=== PATIENT | male | born 1950 | race Caucasian/White ===

== ENCOUNTER → 2018-06-09 12:50 | Outpatient (CLI) | payer MEDICARE, SELFPAY ==
--- NOTE | 2018-06-09 13:01 | MRI_ITS ---
STUDY: MRI ABDOMEN WITHOUT CONTRAST-MRCP REASON FOR EXAM: Male, 67 years old. Elevated liver enzymes with history of prior cholecystectomy. TECHNIQUE: Standardized fat and water weighted pulse sequences were obtained in all 3 orthogonal planes. MRCP protocol with three-dimensional reconstruction images provided. COMPARISON: ERCP from 06/25/2016 FINDINGS: Base of the chest is unremarkable. No hepatic masses are demonstrated. There is non-visualization of the gallbladder, which may be secondary to either contraction or a prior cholecystectomy. Normal spleen. Normal pancreas. Anterior and superior to the pancreatic body, there is a mildly T2 bright and T2 dark slightly lobular lesion measuring 2.2 x 2.2 cm (image 17 of series 3), immediately posterior to the gastric body, although there is a fat plane. Normal bilateral adrenal glands. Normal right kidney. There is simple T2 bright cystic lesions of the left more than right kidney. No hydronephrosis. Follow viscus structures are unremarkable except for diverticular changes of the colon. No retroperitoneal adenopathy. There is aneurysmal enlargement of the infrarenal abdominal aorta measuring up to 3.4 cm in axial dimension, incompletely imaged. There are diffuse degenerative changes of the visualized lumbar spine. Canal narrowing at L3-L4, L4-L5 suspected. MRCP: Cystic duct: Cystic duct was not well visualized. Intrahepatic ducts: There is moderate dilation of the intrahepatic bile ducts with the left main bile duct measuring 9.8 mm in the right main bile duct measuring 8.8 mm. Common hepatic duct: There is moderate dilation of the common hepatic duct measuring up to 13 mm. Common bile duct: Dilation of the common duct measuring up to 14.6 mm. Pancreatic duct: There is mild dilation of the central pancreatic duct which tapers to normal caliber and the pancreatic body (best seen on reformatted image 6 of series 10). MRI/MRCP Abdomen without Contrast IMPRESSION: 1. Moderate intrahepatic and extrahepatic bile duct dilation with mild central pancreatic ductal dilation. Degree of dilation is similar to mildly worse since ERCP. Ampullary obstruction should be considered. No biliary filling defects are seen. 2. 2.2 cm probable lymph node superior to the pancreas (posterior to gastric body). Limited evaluation given lack of IV contrast. Consider additional evaluation with CT abdomen and pelvis. 3. Bilateral renal cysts. 4. Infrarenal abdominal aortic aneurysm measuring up to 3.4 cm, incompletely visualized. 5. 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 Electronically Signed: Aung Estrada MD at 22:00 EST , Service support ,
== END ==
PROVIDERS: Family Provider Internal Medicine; PCP Internal Medicine; Referring Provider Internal Medicine Gastroenterology; Visit Provider Internal Medicine Gastroenterology
DX: R94.5 Abnormal results of liver function studies (principal)
CPT/HCPCS: 74181

== ENCOUNTER → 2018-06-28 12:34 | Outpatient (CLI) | payer MEDICARE, SELFPAY ==
[2018-06-23 10:49] VITALS: BMI 34.6
--- NOTE | 2018-06-28 12:35 | CT_ITS ---
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 Individualized dose optimization techniques were used for this CT. COMPARISON: None. FINDINGS: The lungs are normal. There is a small left basilar effusion. The heart size is within normal limits. There is no pericardial effusion. Coronary arterial calcifications are present. Normal mediastinum. Normal hilar regions. Normal enhanced pulmonary arteries. There are calcified plaques of the thoracic aorta. Status post sternotomy changes are present. There are diffuse degenerative changes of the visualized thoracolumbar spine. Abdominal findings are reported separately. CT/Chest WITH Contrast IMPRESSION: Small left basilar effusion. Coronary arterial calcified lesions are present. Status post sternotomy. Diffuse degenerative changes of the visualized thoracolumbar spine. Electronically Signed: Abraham Hudson MD at 21:51 EST , Service support ,
--- NOTE | 2018-06-28 12:35 | CT_ITS ---
STUDY: CT ABDOMEN AND PELVIS WITH CONTRAST REASON FOR EXAM: Male, 67 years old. Ampullary carcinoma, recent diagnosis RADIATION DOSAGE (If Supplied By Facility): CTDIvol = ( 21.58 ) mGy, DLP = ( 2295.79 ) mGycm TECHNIQUE: Transaxial images were obtained from the dome of the diaphragm to the symphysis pubis with oral contrast. Isovue 300 100CC IV/Oral was administered. Sagittal and coronal images were reconstructed. Individualized dose optimization techniques were used for this CT. COMPARISON: None. FINDINGS: The visualized lung bases are unremarkable. The heart size is within normal limits. Coronary arterial calcifications are present. There is no pericardial effusion. There is a small amount of air in the intrahepatic biliary ductal system. The gallbladder is not seen in accordance with history of cholecystectomy. A biliary stent is present. There is an ill-defined 1.4 cm hypodensity of the pancreatic head. There is no dilatation of the pancreatic duct. The right adrenal is normal. There is a low-attenuation 1.0 cm left adrenal nodule. There is a subcentimeter exophytic right renal cyst. There is a 4.7 cm left renal cyst. Normal visualized stomach. Normal small intestine. There is colonic diverticulosis with no evidence of associated diverticulitis. There is a segment of tube or stent in the distal colon. The appendix is visualized and appears normal. There are calcified plaques of the abdominal aorta and common iliac arteries. There is mild aneurysmal dilatation of the distal abdominal aorta extending to the iliac bifurcation measuring up to 3.2 cm in diameter. Normal inferior vena cava. There are scattered shotty retroperitoneal nodes. Normal urinary bladder. The prostate is mildly enlarged. The seminal vesicles and seminal vesicle angles are preserved. There are bilateral fat-containing inguinal hernias. There are diffuse degenerative changes of the visualized thoracolumbar spine. CT/Abdomen/Pelvis WITH Contrast IMPRESSION: 1. There is a small amount of air in the intrahepatic ductal system. 2. The gallbladder is not seen in accordance with history of cholecystectomy. 3. A biliary stent is present. 4. There is an ill-defined 1.4 cm hypodensity of the pancreatic head. There is no dilatation of the pancreatic duct at this time. 5. There is a low-attenuation 1.0 cm left adrenal nodule most likely representing an adenoma. 6. Bilateral renal cysts. 7. Colonic diverticulosis with no evidence of associated diverticulitis. There is a short segment of tube or stent in the distal colon. 8. There is mild short segment aneurysmal dilatation of the distal abdominal aorta extending to the iliac bifurcation measuring up to 3.2 cm in diameter. 9. There are scattered shoddy retroperitoneal nodes. 10. Mildly enlarged prostate. 11. Bilateral fat-containing inguinal hernias. Electronically Signed: Abraham Hudson MD at 21:31 EST , Service support ,
== END ==
PROVIDERS: Family Provider Internal Medicine; PCP Internal Medicine; Referring Provider Internal Medicine Medical Oncology; Visit Provider Internal Medicine Medical Oncology
DX: C24.1 Malignant neoplasm of ampulla of Vater (principal)
CPT/HCPCS: 71260; 74177; Q9967